=== PATIENT | female | born 1935 | race Caucasian/White ===

== ENCOUNTER 2019-03-07 14:47 | Inpatient (IN) ==
[2019-03-07] MEDS ORDERED: CRESTOR TAB 10 MG PO ONE (18:51)
[2019-03-07] MEDS ORDERED: PROTONIX TAB 40 MG ONE (18:52)
[2019-03-07] MEDS: TENORMIN PO SCH (19:03)
[2019-03-07] MEDS: CRESTOR TAB 10 MG PO SCH ×2 (19:04→21:49)
[2019-03-07] MEDS: PROTONIX TAB 40 MG PO SCH ×2 (19:04→21:50)
[2019-03-07 19:39] LABS: BASOPHILS # (AUTO) 0.1 X10^3/uL (0.0-0.1); BASOPHILS % (AUTO) 0.6 % (0.2-1.0); EOSINOPHILS # (AUTO) 0.1 x10^3/uL (0.0-0.2); EOSINOPHILS % (AUTO) 1.2 % (0.9-2.9); HEMATOCRIT 29.6 % (36.0-47.0); HEMOGLOBIN 9.9 g/dL (12.0-16.0); LYMPHOCYTES # (AUTO) 1.3 X10^3/uL (1.3-2.9); MEAN CORPUSCULAR HEMOGLOBIN 30.1 pg (27.0-34.0); MEAN CORPUSCULAR HGB CONC 33.4 g/dL (33.0-35.0); MEAN CORPUSCULAR VOLUME 90.2 fL (80.0-100.0); MEAN PLATELET VOLUME 9.2 fL (7.4-11.0); MONOCYTES # (AUTO) 1.1 x10^3/uL (0.3-0.8); MONOCYTES % (AUTO) 10.8 % (0.0-13.0); NEUTROPHILS # (AUTO) 7.4 x10^3/uL (2.2-4.8); NEUTROPHILS % (AUTO) 74.4 % (42.0-75.0); PLATELET COUNT 254 X10^3/uL (150.0-450.0); RED BLOOD COUNT 3.29 X10^6/uL (3.5-5.4); RED CELL DISTRIBUTION WIDTH 14.3 % (11.6-16.5); WHITE BLOOD COUNT 9.9 X10^3/uL (3.6-10.0)
[2019-03-07 19:56] LABS: ALANINE AMINOTRANSFERASE 18 Units/L (12-78); ALBUMIN 2.7 g/dL (3.4-5.0); ALKALINE PHOSPHATASE 63 Units/L (46-116); ASPARTATE AMINO TRANSFERASE 25 Units/L (15-37); BLOOD UREA NITROGEN 11 mg/dL (7-18); CALCIUM 8.3 mg/dL (8.5-10.1); CARBON DIOXIDE 27.6 mmol/L (21-32); CHLORIDE 105 mmol/L (98-107); COR CA(FOR HYPOALB) 9.3 mg/dL (8.5-10.1); COR NA(FOR HYPERGLY) 140 mmol/L (136-145); CREATININE 0.65 mg/dL (0.55-1.02); SODIUM 140 mmol/L (136-145); TOTAL PROTEIN 6.1 g/dL (6.4-8.2); eGFR NON BLACK RACES > 60 (>60)
[2019-03-07] MEDS ORDERED: POTASSIUM CHL 40 MEQ/NS 0.45% 500 ML IV PRN (22:37)
[2019-03-07] MEDS ORDERED: POTASSIUM CHLORIDE LIQ 20 MEQ UDC PO PRN (22:37)
[2019-03-07] MEDS ORDERED: MICRO K EXTEN CAP 10 MEQ PO PRN (22:37)
[2019-03-07] MEDS ORDERED: POTASSIUM CHL 60 MEQ/NS 0.45% 500 ML IV PRN (22:37)
[2019-03-07] MEDS ORDERED: MAGNESIUM SULFATE 1 GRAM/100 mL PREMIX 1 GM/100 ML BAG IV PRN (22:37)
[2019-03-07] MEDS ORDERED: K-RIDER 10 MEQ/NS 100 ML 10 MEQ/100 ML BAG IV PRN (22:37)
[2019-03-07] MEDS ORDERED: KLOR-CON PO PRN (22:37)
[2019-03-07] MEDS: K-DUR TAB 20 MEQ PO PRN (23:26)
[2019-03-08] MEDS: TYLENOL 325 MG TAB PO PRN (01:57)
[2019-03-08] MEDS: PROTONIX TAB 40 MG PO SCH ×2 (09:17→20:18)
[2019-03-08] MEDS: HYZAAR 50/12.5 MG PO SCH (09:18)
[2019-03-08] MEDS: TENORMIN PO SCH (09:18)
--- NOTE | 2019-03-08 17:52 | DR.H&P ---
H&P - History & Physical for Day of: H&P Date: 03/07/19 - Chief Complaint Chief Complaint: GENERALIZED WEAKNESS, RECENT GI BLEED - History of Present Illness History of Present Illness: IS A 84 YEAR OLD PATIENT OF OURS WHO WAS TRANSFERRED FROM [facility] IN [place], [place] FOR SWINGBED THERAPY. SHE WAS SENT TO [facility] ON 02/25/2019 DUE TO A GI BLEED. SHE HAS A HISTORY OF ATRIAL FIBRILLATION FOR WHICH SHE WAS TAKING XARELTO. SHE RECEIVED TWO UNITS OF PACKED RED BLOOD CELLS WHILE SHE WAS THERE. SHE WAS SEEN BY GASTROENTEROLOGY WHILE SHE WAS THERE AND HAD A CT SCAN WHICH REVEALED A SPLENIC BLEED WITH INTRA- ABDOMINAL HEMORRHAGE. SHE UNDERWENT IR EMBOLIZATION OF THE MAIN SPLENIC ARTERY. A PICC LINE WAS PLACED AND SHE WAS GIVEN SPLENECTOMY VACCINATIONS. HE HEMOGLOBIN REMAINED STABLE AT 8.5-9.5. SHE UNDERWENT PHYSICAL AND OCCUPATION THERAPY DURING HER STAY DUE TO CHRONIC WEAKNESS AND A DECLINE IN ADLs. SHE WAS DISCHARGED FROM [facility] AND TRANSFERRED TO US FOR REHAB. ON ARRIVAL, VITALS WERE 98.3-82-20-96%-193/77. LABS WERE OBTAINED. ABNORMAL LAB VALUES INCLUDE THE FOLLOWING: RBC 3.29, HGB 9.9, HCT 29.6, POTASSIUM 3.4, GLUCOSE 114, CALCIUM 8.3, TOTAL BILI 1.20, TOTAL PROTEIN 6.1, ALBUMIN 2.7. HER HOME MEDICATIONS WERE RESUMED. SHE WILL RECEIVE PHYSICAL THERAPY AND OCCUPATIONAL THERAPY. OTHERWISE, WE WILL CONTINUE TO MONITOR. - Past Medical History Past Medical History: Dyslipidemia, Hypertension Additional Medical History: ATRIAL FIBRILLATION - Past Surgical History Surgical History: Appendectomy, Hysterectomy Additional Surgical History: AFIB ABLATION - Family History Family Medical History: Cancer - Medications Home Medications: codeine Allergy (Verified 03/07/19 18:43) iodine Allergy (Verified 03/07/19 18:43) meperidine Allergy (Verified 03/07/19 18:43) morphine Allergy (Verified 03/07/19 18:43) NSAIDS (Non-Steroidal Anti-Inflamma Allergy (Verified 03/07/19 18:43) shrimp Allergy (Verified 03/07/19 18:43) CONTINUE taking the following medications atenolol [Tenormin] 12.5 mg PO DAILY 03/07/19 [History] cyanocobalamin (vitamin B-12) 1 ml IM QMONTH 03/07/19 [History] losartan-hydrochlorothiazide 1 tab PO DAILY 03/07/19 [History] pantoprazole [Protonix] 40 mg PO BID 03/07/19 [History] rosuvastatin [Crestor] 10 mg PO DAILY 03/07/19 [History] - Review of Systems Constitutional: See HPI, Weakness Eyes: No Symptoms Reported ENT: No Symptoms Reported Respiratory: No Symptoms Reported Cardiovascular: No Symptoms Reported Gastrointestinal: Abdominal Pain Genitourinary: No Symptoms Reported Musculoskeletal: No Symptoms Reported Skin: No Symptoms Reported Neurological: Weakness - Physical Exam Vital Signs: Temperature 98.1 F Pulse Rate [Left Brachial] 58 Pulse Rate [Left Radial] 79 Respiratory Rate 18 Blood Pressure [Left Arm] 149/69 O2 Sat by Pulse Oximetry 97 Oriented: Normal Eyes: Normal Ear: Normal Nose: Normal Throat: Normal Respiratory: Diminished Throughout Cardiovascular: Normal : Normal Auscultation: Bowel Sounds: Normal Palpation: Normal Tenderness: Normal Skin: Normal Musculoskeletal: Normal Mood Description: Calm Affect: Normal Speech Pattern: Clear - Assessment/Plan (1) Generalized weakness Status: Acute Plan: PHYSICAL/OCCUPATIONAL THERAPY, CONTINUE TO MONITOR (2) GI bleed Qualifiers: GI bleed type/associated pathology: unspecified gastrointestinal hemorrhage type Qualified Code(s): K92.2 - Gastrointestinal hemorrhage, unspecified Status: Acute Plan: CONTINUE TO MONITOR - Allergies Allergies/Adverse Reactions: Allergies Allergy/AdvReac Type Severity Reaction Status Date / Time codeine Allergy Verified 03/07/19 18:43 iodine Allergy Verified 03/07/19 18:43 meperidine Allergy Verified 03/07/19 18:43 morphine Allergy Verified 03/07/19 18:43 NSAIDS (Non-Steroidal Allergy Verified 03/07/19 18:43 Anti-Inflamma shrimp Allergy Verified 03/07/19 18:43
--- NOTE | 2019-03-08 18:41 | PT/OTEVAL ---
PT/OT OBJECTIVES - HISTORY Prescription: OT consult Diagnosis: s/p GI bleed, R upper arm DVT Precautions: DVT on R arm, SOB, risk of falls Prior Level of Function: Independent Other, comment: Pt lives alone and is independent in all areas of self care/transfers. - COGNITION Mental Status: Alert, Oriented, Name, Place, Purpose Communication Status: Verbal Ability to Follow Directions: 2 Step - ADL'S Feeding: Setup Grooming: Minimum Upper Body ADL: Minimum Lower Body ADL: Maximum Toileting: Minimum Toileting Comment: Min to touch A with transfers for safety; hygiene supv. - BALANCE Dynamic Sitting: Good Standing: Fair Balance Comment: F/F- S/D standing balance Static Sitting: Good Standing: Fair Balance Comment: F/F- S/D standing balance - NEUROMOTOR/SENSATION Antonio. Upper Ext Sensation: WFL Coordination: WFL - HAND DOMINANCE Extremity Function: Hand Dominance: Right - ROM Right UE ROM: Impaired Muscle Tone: WFL Left UE ROM: WFL Muscle Tone: WFL - STRENGTH Right UE Strength Number: 3 Other comment: 01/24 Left UE Strength Number: 3 Other comment: 01/24 PT/OT ASSESSMENT - OT Problem List: Decreased Mobility ADL's, Decreased Safety Aware, Decreased Dressing, Decreased Bathing, Decreased Grooming, Decreased UE Strength, Other Other, comment: decreased toileting, decreased FAT - OT GOALS Shopping Investigator Goals Days: 20 days Mobility for ADL's: Pt will demo toilet t'frs/hygiene I using ADs without SOB. Safety Awareness: Pt will demo knowledge of ECTs, WSTs, PBMs, JPTs during ADLs. Dressing: Pt will demo UB/LB dressing independently using AEs PRN and no SOB. Bathing: Pt will demo bathing with setup. Grooming: Pt will demo grooming/oral hygiene at sink level independently. Upper Ext. Strength/Use: Pt will demo in BUE strength to 1/2 to 1 mm grade increment. Other: Pt will demo G FAT during exercises/actvities/ADLs. Short Term Goals Days: 10 days Mobility for ADL's: Pt will demo toilet t'frs/hygiene setup using ADs min SOB. Safety Awareness: Pt will be educated with of ECTs, WSTs, PBMs, JPTs during ADLs. Dressing: Pt will demo UB/LB dressing with setup using AEs PRN and min SOB. Bathing: Pt will demo bathing with supv. Grooming: Pt will demo grooming/oral hygiene at sink level with supv. Other: Pt will demo F FAT during exercises/actvities/ADLs. - PATIENT GOALS Patient/Family Goals: To increase strength necessary for safe ADL participation. Goals Discussed with Patient/Family: Yes Rehabilitation Potential: Good Justification for Potential: High PLOF, able to participate. - PLAN Suggested Treatment Plan: Therapeutic Activity, Self Care Training, Neuro Re- education, Therapeutic Ex with HEP, Patient Education - FREQUENCY AND DURATION OT: 5x/wk for 20 days Expected Continuation of Care at Discharge: Determined on Progress
[2019-03-08] MEDS: CRESTOR TAB 10 MG PO SCH (20:18)
[2019-03-09 05:31] LABS: BASOPHILS # (AUTO) 0.1 X10^3/uL (0.0-0.1); EOSINOPHILS # (AUTO) 0.1 x10^3/uL (0.0-0.2); EOSINOPHILS % (AUTO) 1.5 % (0.9-2.9); HEMATOCRIT 28.1 % (36.0-47.0); HEMOGLOBIN 9.3 g/dL (12.0-16.0); LYMPHOCYTES # (AUTO) 1.5 X10^3/uL (1.3-2.9); LYMPHOCYTES % (AUTO) 19.2 % (21.0-51.0); MEAN CORPUSCULAR HEMOGLOBIN 29.6 pg (27.0-34.0); MEAN CORPUSCULAR HGB CONC 33.3 g/dL (33.0-35.0); MEAN PLATELET VOLUME 9.4 fL (7.4-11.0); MONOCYTES # (AUTO) 0.9 x10^3/uL (0.3-0.8); NEUTROPHILS # (AUTO) 5.2 x10^3/uL (2.2-4.8); NEUTROPHILS % (AUTO) 67.3 % (42.0-75.0); PLATELET COUNT 228 X10^3/uL (150.0-450.0); RED BLOOD COUNT 3.16 X10^6/uL (3.5-5.4); RED CELL DISTRIBUTION WIDTH 14.7 % (11.6-16.5); WHITE BLOOD COUNT 7.8 X10^3/uL (3.6-10.0)
[2019-03-09 05:32] LABS: SODIUM 140 mmol/L (136-145); TOTAL PROTEIN 5.8 g/dL (6.4-8.2)
[2019-03-09 05:49] LABS: PLATELET MORPHOLOGY COMMENT NORMAL (NORMAL)
[2019-03-09 06:00] LABS: ALANINE AMINOTRANSFERASE 18 Units/L (12-78); ALBUMIN 2.4 g/dL (3.4-5.0); ALKALINE PHOSPHATASE 67 Units/L (46-116); ASPARTATE AMINO TRANSFERASE 28 Units/L (15-37); BLOOD UREA NITROGEN 9 mg/dL (7-18); CALCIUM 8.1 mg/dL (8.5-10.1); CHLORIDE 105 mmol/L (98-107); COR CA(FOR HYPOALB) 9.4 mg/dL (8.5-10.1); COR NA(FOR HYPERGLY) 141 mmol/L (136-145); eGFR NON BLACK RACES > 60 (>60)
[2019-03-09] MEDS: TENORMIN PO SCH (09:14)
[2019-03-09] MEDS: HYZAAR 50/12.5 MG PO SCH ×2 (09:14→09:16)
[2019-03-09] MEDS: PROTONIX TAB 40 MG PO SCH ×2 (09:14→20:47)
[2019-03-09] MEDS: K-DUR TAB 20 MEQ PO PRN (09:16)
[2019-03-09] MEDS ORDERED: VITAMIN B-12 INJ IM ONE (10:17)
--- NOTE | 2019-03-09 15:32 | PT/OTEVAL ---
PT/OT OBJECTIVES - HISTORY Prescription: PT Evaluation Diagnosis: GI bleed and generalized weakness Precautions: fall risk Prior Level of Function: Independent - COGNITION Mental Status: Alert, Oriented, Lethargic, Decreased Safety Awarenes Communication Status: Verbal Ability to Follow Directions: 2 Step, 3 Step - BED MOBILITY Rolling: Supervision Scooting: Supervision Bridging: Supervision - TRANSFERS Supine to Sit: Minimal Sit to Stand: Minimal Sit or Stand Pivot: Minimal - BALANCE Dynamic Sitting: Good Standing: Fair Balance Comment: F/F- S/D standing balance Static Sitting: Good Standing: Fair Balance Comment: F/F- S/D standing balance - NEUROMOTOR/SENSATION Antonio. Upper Ext Sensation: WFL Coordination: WFL - ROM Bilateral LE ROM: WFL Muscle Tone: WFL - STRENGTH Right UE Strength Number: 3 Other comment: 01/24 Left UE Strength Number: 3 Other comment: 01/24 Bilateral LE Strength Number: 3 - GAIT Pt. ambulates how many feet?: 8 Amount of assistance required: Minimal Amount of Assistance Required: Minimal Type of Assistive Device: None PT/OT ASSESSMENT - PT Problem List: Decreased Bed Mobility, Decreased Transfers, Decreased Gait, Decreased Balance, Decreased Safety, Decreased LE Strength - PT GOALS Intermediate Goals Days: 20 days Mobility: pt. will be Independent in rolling and supine <-> sit @ EOB Transfers: pt. will be Independent in transfers from bed <-> W/C Gait: pt. will be Independent & increase gait to ~ 100 ft. with/without use of AD Balance: pt. will increase standing balance to G+/G ROM/Strength: pt. will increase BLE muscle strength to 4/5 -> 4+/5 Short Term Goals Days: 10 Mobility: pt. will achieve Set/Clean-up A in rolling and supine <-> sit @ EOB Transfers: pt. will achieve Set/Clean-up A in transfers from bed <-> W/C Gait: pt. will be Set/Clean-up & increase gait to ~ 50 ft. with/without use of AD Balance: pt. will increase standing balance to G/G- ROM/Strength: pt. will increase BLE muscle strength to 3+/5 -> 4-/5 - OT GOALS Intermediate Goals Days: 20 days Mobility for ADL's: Pt will demo toilet t'frs/hygiene I using ADs without SOB. Safety Awareness: Pt will demo knowledge of ECTs, WSTs, PBMs, JPTs during ADLs. Dressing: Pt will demo UB/LB dressing independently using AEs PRN and no SOB. Bathing: Pt will demo bathing with setup. Grooming: Pt will demo grooming/oral hygiene at sink level independently. Upper Ext. Strength/Use: Pt will demo in BUE strength to 1/2 to 1 mm grade increment. Other: Pt will demo G FAT during exercises/actvities/ADLs. Short Term Goals Days: 10 days Mobility for ADL's: Pt will demo toilet t'frs/hygiene setup using ADs min SOB. Safety Awareness: Pt will be educated with of ECTs, WSTs, PBMs, JPTs during ADLs. Dressing: Pt will demo UB/LB dressing with setup using AEs PRN and min SOB. Bathing: Pt will demo bathing with supv. Grooming: Pt will demo grooming/oral hygiene at sink level with supv. Other: Pt will demo F FAT during exercises/actvities/ADLs. - PATIENT GOALS Patient/Family Goals: to get stronger and return to PLOF in home and community settings Goals Discussed with Patient/Family: Yes Rehabilitation Potential: good Justification for Potential: pt. motivated to return home Weakness and Barriers: None - PLAN Suggested Treatment Plan: Bed Mobility Training, Therapeutic Activity, Gait Training, Neuro Re-education, Therapeutic Ex with HEP - FREQUENCY AND DURATION PT: 5x/wk x hospital stay Expected Continuation of Care at Discharge: Determined on Progress
[2019-03-09] MEDS: CRESTOR TAB 10 MG PO SCH (20:47)
[2019-03-10] MEDS: TENORMIN PO SCH (08:25)
[2019-03-10] MEDS: PROTONIX TAB 40 MG PO SCH ×2 (08:25→21:04)
[2019-03-10] MEDS: CRESTOR TAB 10 MG PO SCH (21:04)
[2019-03-11] MEDS: K-DUR TAB 20 MEQ PO PRN (06:28)
[2019-03-11] MEDS: PROTONIX TAB 40 MG PO SCH ×2 (08:49→20:18)
[2019-03-11] MEDS: TENORMIN PO SCH (08:49)
--- NOTE | 2019-03-11 17:25 | PCM.PROG ---
Progress Note - Progress Note for Day of Date of Exam: 03/10/19 - Subjective Subjective: IS SWINGBED STATUS FOR PHYSICAL AND OCCUPATIONAL THERAPY DUE TO A DECLINE IN AMBULATION AND ADLs FOLLOWING A GI BLEED. SHE RECENTLY UNDERWENT AN IR EMBOLIZATION DUE TO A SPLENIC BLEED WITH INTRA-ABDOMINAL HEMORRHAGE. TODAY, SHE IS ALERT AND ORIENTED, SITTING UP IN CHAIR ON MORNING RO UNDS. SHE CONTINUES WITH GENERALIZED WEAKNESS. ON EXAMINATION, HEART IS REGULAR IN RATE AND RHYTHM. BILATERAL LUNGS ARE NOTED WITH DIMINISHED LUNG SOUNDS THROUGHOUT. ABDOMEN IS ROUND, SOFT, AND NON-TENDER. HER VITALS THIS MORNING ARE 98.1-66-20-95%-141/64. LABS WERE OBTAINED YESTERDAY AND REVEALED: RBC 3.16, HGB 9.3, HCT 28.1, GLUCOSE 121, CALCIUM 8.1, TOTAL PROTEIN 5.8, ALBUMIN 2.4. PHYSICAL THERAPY REPORTS THAT PATIENT IS COOPERATING AND MAKING IMPROVEMENTS. WE WILL CONTINUE WITH THERAPY AND CONTINUE TO MONITOR PATIENT. - Past Medical Family Social History Past Med/Fam/Surg Hx: No changes since H&P Allergies: Allergies codeine Allergy (Verified 03/07/19 18:43) iodine Allergy (Verified 03/07/19 18:43) meperidine Allergy (Verified 03/07/19 18:43) morphine Allergy (Verified 03/07/19 18:43) NSAIDS (Non-Steroidal Anti-Inflamma Allergy (Verified 03/07/19 18:43) shrimp Allergy (Verified 03/07/19 18:43) - Review of Systems ROS: No change since H&P - Vital Signs and I&O's Vital Signs: Temperature 98.2 F Pulse Rate [Left Brachial] 59 Pulse Rate [Left Radial] 79 Respiratory Rate 18 Blood Pressure [Left Arm] 140/64 O2 Sat by Pulse Oximetry 96 Intake and Output: Intake & Output 03/09/19 03/10/19 03/11/19 03/12/19 11:59 11:59 11:59 11:59 Intake Total 660 / 660 1080 / 1080 1660 / 1660 440 / 440 Balance 660 / 660 1080 / 1080 1660 / 1660 440 / 440 - Physical Exam Oriented: Normal Eyes: Normal Ear: Normal Nose: Normal Throat: Normal Respiratory: Generalized, Diminished Cardiovascular: Normal : Normal Auscultation: Bowel Sounds: Normal Palpation: Normal Tenderness: Normal Skin: Normal Musculoskeletal: Normal Mood Description: Calm Affect: Normal Speech Pattern: Clear, Appropriate - Laboratory and Diagnostics Result Diagrams: 03/09/19 04:40 03/09/19 05:40 Labs: Laboratory WBC 7.8 X10^3/uL (3.6-10.0) 03/09/19 04:40 RBC 3.16 X10^6/uL (3.5-5.4) L 03/09/19 04:40 Hgb 9.3 g/dL (12.0-16.0) L 03/09/19 04:40 Hct 28.1 % (36.0-47.0) L 03/09/19 04:40 MCV 89.0 fL (80.0-100.0) 03/09/19 04:40 MCH 29.6 pg (27.0-34.0) 03/09/19 04:40 MCHC 33.3 g/dL (33.0-35.0) 03/09/19 04:40 RDW 14.7 % (11.6-16.5) 03/09/19 04:40 Plt Count 228 X10^3/uL (150.0-450.0) 03/09/19 04:40 Plt Count Comment Adequate (ADEQUATE) 03/09/19 04:40 MPV 9.4 fL (7.4-11.0) 03/09/19 04:40 Neut % (Auto) 67.3 % (42.0-75.0) 03/09/19 04:40 Lymph % (Auto) 19.2 % (21.0-51.0) L 03/09/19 04:40 Jewell % (Auto) 11.0 % (0.0-13.0) 03/09/19 04:40 Eos % (Auto) 1.5 % (0.9-2.9) 03/09/19 04:40 Baso % (Auto) 1.0 % (0.2-1.0) 03/09/19 04:40 Neut # (Auto) 5.2 x10^3/uL (2.2-4.8) H 03/09/19 04:40 Lymph # (Auto) 1.5 X10^3/uL (1.3-2.9) 03/09/19 04:40 Jewell # (Auto) 0.9 x10^3/uL (0.3-0.8) H 03/09/19 04:40 Eos # (Auto) 0.1 x10^3/uL (0.0-0.2) 03/09/19 04:40 Baso # (Auto) 0.1 X10^3/uL (0.0-0.1) 03/09/19 04:40 Absolute Nucleated RBC 0.1 /100WBC 03/09/19 04:40 Total Counted 100 03/09/19 04:40 Neutrophils % (Manual) 63 % (39-76) 03/09/19 04:40 Lymphocytes % (Manual) 25 % (13-43) 03/09/19 04:40 Monocytes % (Manual) 11 % (4-9) H 03/09/19 04:40 Eosinophils % (Manual) 1 % (0-6) 03/09/19 04:40 Plt Morphology Comment Normal (NORMAL) 03/09/19 04:40 RBC Morphology Normal (NORMAL) 03/09/19 04:40 Sodium 140 mmol/L (136-145) 03/09/19 05:40 Corrected Sodium 141 mmol/L (136-145) 03/09/19 05:40 Potassium 3.5 mmol/L (3.5-5.1) 03/09/19 05:40 Chloride 105 mmol/L (98-107) 03/09/19 05:40 Carbon Dioxide 29.0 mmol/L (21-32) 03/09/19 05:40 BUN 9 mg/dL (7-18) 03/09/19 05:40 Creatinine 0.60 mg/dL (0.55-1.02) 03/09/19 05:40 Est GFR (MDRD) Af Amer > 60 (>60) 03/09/19 05:40 Est GFR (MDRD) Non-Af > 60 (>60) 03/09/19 05:40 Glucose 121 mg/dL (65-99) H 03/09/19 05:40 Calcium 8.1 mg/dL (8.5-10.1) L 03/09/19 05:40 Corrected Calcium 9.4 mg/dL (8.5-10.1) 03/09/19 05:40 Magnesium 1.8 mg/dL (1.7-2.9) 03/07/19 19:30 Total Bilirubin 1.00 mg/dL (0.2-1.0) 03/09/19 05:40 AST 28 Units/L (15-37) 03/09/19 05:40 ALT 18 Units/L (12-78) 03/09/19 05:40 Alkaline Phosphatase 67 Units/L (46-116) 03/09/19 05:40 Total Protein 5.8 g/dL (6.4-8.2) L 03/09/19 05:40 Albumin 2.4 g/dL (3.4-5.0) L 03/09/19 05:40 Globulin 3.4 g/dL (2.5-4.5) 03/09/19 05:40 Albumin/Globulin Ratio 0.7 Ratio (1.1-2.1) L 03/09/19 05:40 - Plan (1) Generalized weakness Status: Acute Plan: PHYSICAL/OCCUPATIONAL THERAPY, CONTINUE TO MONITOR (2) GI bleed Status: Acute Qualifiers: GI bleed type/associated pathology: unspecified gastrointestinal hemorrhage type Qualified Code(s): K92.2 - Gastrointestinal hemorrhage, unspecified Plan: CONTINUE TO MONITOR
[2019-03-11] MEDS: CRESTOR TAB 10 MG PO SCH (20:18)
[2019-03-12] MEDS: PROTONIX TAB 40 MG PO SCH ×2 (08:48→20:32)
[2019-03-12] MEDS: K-DUR TAB 20 MEQ PO SCH ×2 (08:48→20:31)
[2019-03-12] MEDS: TENORMIN PO SCH (08:49)
[2019-03-12] MEDS: MAG-OX TAB PO SCH ×3 (08:49→17:38)
[2019-03-12] MEDS: CRESTOR TAB 10 MG PO SCH (20:31)
[2019-03-13 05:26] LABS: BASOPHILS # (AUTO) 0.1 X10^3/uL (0.0-0.1); BASOPHILS % (AUTO) 1.2 % (0.2-1.0); EOSINOPHILS # (AUTO) 0.2 x10^3/uL (0.0-0.2); EOSINOPHILS % (AUTO) 2.5 % (0.9-2.9); HEMATOCRIT 30.7 % (36.0-47.0); HEMOGLOBIN 10.2 g/dL (12.0-16.0); LYMPHOCYTES # (AUTO) 1.6 X10^3/uL (1.3-2.9); LYMPHOCYTES % (AUTO) 23.9 % (21.0-51.0); MEAN CORPUSCULAR HEMOGLOBIN 29.8 pg (27.0-34.0); MEAN CORPUSCULAR HGB CONC 33.1 g/dL (33.0-35.0); MEAN CORPUSCULAR VOLUME 90.2 fL (80.0-100.0); MEAN PLATELET VOLUME 9.5 fL (7.4-11.0); MONOCYTES # (AUTO) 0.9 x10^3/uL (0.3-0.8); MONOCYTES % (AUTO) 13.9 % (0.0-13.0); NEUTROPHILS # (AUTO) 3.8 x10^3/uL (2.2-4.8); NEUTROPHILS % (AUTO) 58.5 % (42.0-75.0); PLATELET COUNT 274 X10^3/uL (150.0-450.0); RED CELL DISTRIBUTION WIDTH 14.4 % (11.6-16.5); WHITE BLOOD COUNT 6.5 X10^3/uL (3.6-10.0)
[2019-03-13 05:34] LABS: ALANINE AMINOTRANSFERASE 17 Units/L (12-78); ALBUMIN 2.5 g/dL (3.4-5.0); ALKALINE PHOSPHATASE 80 Units/L (46-116); ASPARTATE AMINO TRANSFERASE 26 Units/L (15-37); BLOOD UREA NITROGEN 9 mg/dL (7-18); CALCIUM 8.3 mg/dL (8.5-10.1); CARBON DIOXIDE 28.6 mmol/L (21-32); CHLORIDE 107 mmol/L (98-107); COR CA(FOR HYPOALB) 9.5 mg/dL (8.5-10.1); COR NA(FOR HYPERGLY) 142 mmol/L (136-145); CREATININE 0.73 mg/dL (0.55-1.02); MAGNESIUM 1.7 mg/dL (1.7-2.9); SODIUM 142 mmol/L (136-145); TOTAL PROTEIN 5.9 g/dL (6.4-8.2); eGFR NON BLACK RACES > 60 (>60)
[2019-03-13] MEDS: MAG-OX TAB PO SCH ×3 (06:07→17:26)
[2019-03-13] MEDS: PROTONIX TAB 40 MG PO SCH ×2 (09:22→20:41)
[2019-03-13] MEDS: K-DUR TAB 20 MEQ PO SCH ×2 (09:22→20:39)
[2019-03-13] MEDS: TENORMIN PO SCH (09:23)
[2019-03-13] MEDS: MEGACE PO SCH ×2 (11:40→20:41)
--- NOTE | 2019-03-13 19:23 | PCM.PROG ---
Progress Note - Progress Note for Day of Date of Exam: 03/13/19 - Subjective Subjective: IS SWINGBED STATUS FOR PHYSICAL AND OCCUPATIONAL THERAPY DUE TO A DECLINE IN AMBULATION AND ADLs FOLLOWING A GI BLEED. SHE RECENTLY UNDERWENT AN IR EMBOLIZATION DUE TO A SPLENIC BLEED WITH INTRA-ABDOMINAL HEMORRHAGE. TODAY, SHE IS ALERT AND ORIENTED, SITTING UP IN CHAIR ON MORNING RO UNDS. SHE CONTINUES WITH GENERALIZED WEAKNESS. SHE ALSO REPORTS A DECREASED APPETITE TODAY. ON EXAMINATION, HEART IS REGULAR IN RATE AND RHYTHM. BILATERAL LUNGS ARE NOTED WITH DIMINISHED LUNG SOUNDS THROUGHOUT. ABDOMEN IS ROUND, SOFT, AND NON-TENDER. HER VITALS THIS MORNING ARE 98.8-69-18-96%-139/65. LABS WERE OBTAINED YESTERDAY AND REVEALED: RBC 3.40, HGB 10.2, HCT 30.7, GLUCOSE 119, CALCIUM 8.3, TOTAL PROTEIN 5.9, ALBUMIN 2.5. PHYSICAL THERAPY REPORTS THAT PATIENT IS COOPERATING AND MAKING IMPROVEMENTS. TODAY, WE WILL START MEGACE 40MG PO BID. OTHERWISE, WE WILL CONTINUE WITH THERAPY AND CONTINUE TO MONITOR PATIENT. - Past Medical Family Social History Past Med/Fam/Surg Hx: No changes since H&P Allergies: Allergies codeine Allergy (Verified 03/07/19 18:43) iodine Allergy (Verified 03/07/19 18:43) meperidine Allergy (Verified 03/07/19 18:43) morphine Allergy (Verified 03/07/19 18:43) NSAIDS (Non-Steroidal Anti-Inflamma Allergy (Verified 03/07/19 18:43) shrimp Allergy (Verified 03/07/19 18:43) - Review of Systems ROS: No change since H&P - Vital Signs and I&O's Vital Signs: Temperature 98.8 F Pulse Rate [Left Brachial] 69 Pulse Rate [Left Radial] 79 Respiratory Rate 18 Blood Pressure [Left Arm] 139/65 O2 Sat by Pulse Oximetry 96 Intake and Output: Intake & Output 03/11/19 03/12/19 03/13/19 03/14/19 11:59 11:59 11:59 11:59 Intake Total 1660 / 1660 860 / 860 1740 / 1740 480 / 480 Balance 1660 / 1660 860 / 860 1740 / 1740 480 / 480 - Physical Exam Oriented: Normal Eyes: Normal Ear: Normal Nose: Normal Throat: Normal Respiratory: Generalized, Diminished Cardiovascular: Normal : Normal Auscultation: Bowel Sounds: Normal Palpation: Normal Tenderness: Normal Skin: Normal Musculoskeletal: Normal Mood Description: Calm Affect: Normal Speech Pattern: Clear, Appropriate - Laboratory and Diagnostics Result Diagrams: 03/13/19 04:27 03/13/19 04:27 Labs: Laboratory WBC 6.5 X10^3/uL (3.6-10.0) 03/13/19 04:27 RBC 3.40 X10^6/uL (3.5-5.4) L 03/13/19 04:27 Hgb 10.2 g/dL (12.0-16.0) L 03/13/19 04:27 Hct 30.7 % (36.0-47.0) L 03/13/19 04:27 MCV 90.2 fL (80.0-100.0) 03/13/19 04:27 MCH 29.8 pg (27.0-34.0) 03/13/19 04:27 MCHC 33.1 g/dL (33.0-35.0) 03/13/19 04:27 RDW 14.4 % (11.6-16.5) 03/13/19 04:27 Plt Count 274 X10^3/uL (150.0-450.0) 03/13/19 04:27 Plt Count Comment Adequate (ADEQUATE) 03/09/19 04:40 MPV 9.5 fL (7.4-11.0) 03/13/19 04:27 Neut % (Auto) 58.5 % (42.0-75.0) 03/13/19 04:27 Lymph % (Auto) 23.9 % (21.0-51.0) 03/13/19 04:27 Hendry % (Auto) 13.9 % (0.0-13.0) H 03/13/19 04:27 Eos % (Auto) 2.5 % (0.9-2.9) 03/13/19 04:27 Baso % (Auto) 1.2 % (0.2-1.0) H 03/13/19 04:27 Neut # (Auto) 3.8 x10^3/uL (2.2-4.8) 03/13/19 04:27 Lymph # (Auto) 1.6 X10^3/uL (1.3-2.9) 03/13/19 04:27 Hendry # (Auto) 0.9 x10^3/uL (0.3-0.8) H 03/13/19 04:27 Eos # (Auto) 0.2 x10^3/uL (0.0-0.2) 03/13/19 04:27 Baso # (Auto) 0.1 X10^3/uL (0.0-0.1) 03/13/19 04:27 Absolute Nucleated RBC 0.0 /100WBC 03/13/19 04:27 Total Counted 100 03/09/19 04:40 Neutrophils % (Manual) 63 % (39-76) 03/09/19 04:40 Lymphocytes % (Manual) 25 % (13-43) 03/09/19 04:40 Monocytes % (Manual) 11 % (4-9) H 03/09/19 04:40 Eosinophils % (Manual) 1 % (0-6) 03/09/19 04:40 Plt Morphology Comment Normal (NORMAL) 03/09/19 04:40 RBC Morphology Normal (NORMAL) 03/09/19 04:40 Sodium 142 mmol/L (136-145) 03/13/19 04:27 Corrected Sodium 142 mmol/L (136-145) 03/13/19 04:27 Potassium 4.2 mmol/L (3.5-5.1) 03/13/19 04:27 Chloride 107 mmol/L (98-107) 03/13/19 04:27 Carbon Dioxide 28.6 mmol/L (21-32) 03/13/19 04:27 BUN 9 mg/dL (7-18) 03/13/19 04:27 Creatinine 0.73 mg/dL (0.55-1.02) 03/13/19 04:27 Est GFR (MDRD) Af Amer > 60 (>60) 03/13/19 04:27 Est GFR (MDRD) Non-Af > 60 (>60) 03/13/19 04:27 Glucose 119 mg/dL (65-99) H 03/13/19 04:27 Calcium 8.3 mg/dL (8.5-10.1) L 03/13/19 04:27 Corrected Calcium 9.5 mg/dL (8.5-10.1) 03/13/19 04:27 Magnesium 1.7 mg/dL (1.7-2.9) 03/13/19 04:27 Total Bilirubin 0.80 mg/dL (0.2-1.0) 03/13/19 04:27 AST 26 Units/L (15-37) 03/13/19 04:27 ALT 17 Units/L (12-78) 03/13/19 04:27 Alkaline Phosphatase 80 Units/L (46-116) 03/13/19 04:27 Total Protein 5.9 g/dL (6.4-8.2) L 03/13/19 04:27 Albumin 2.5 g/dL (3.4-5.0) L 03/13/19 04:27 Globulin 3.4 g/dL (2.5-4.5) 03/13/19 04:27 Albumin/Globulin Ratio 0.7 Ratio (1.1-2.1) L 03/13/19 04:27 - Plan (1) Generalized weakness Status: Acute Plan: PHYSICAL/OCCUPATIONAL THERAPY, CONTINUE TO MONITOR (2) GI bleed Status: Acute Qualifiers: GI bleed type/associated pathology: unspecified gastrointestinal hemorrhage type Qualified Code(s): K92.2 - Gastrointestinal hemorrhage, unspecified Plan: CONTINUE TO MONITOR (3) Hypertension Status: Acute Qualifiers: Hypertension type: essential hypertension Qualified Code(s): I10 - Essential (primary) hypertension Plan: CONTINUE ATENOLOL, CONTINUE TO MONITOR (4) Hyperlipidemia Status: Acute Qualifiers: Hyperlipidemia type: mixed hyperlipidemia Qualified Code(s): E78.2 - Mixed hyperlipidemia Plan: CONTINUE CRESTOR, CONTINUE TO MONITOR (5) Decreased appetite Status: Acute Plan: MEGACE 40MG PO BID, CONTINUE TO MONITOR
[2019-03-13] MEDS: CRESTOR TAB 10 MG PO SCH (20:41)
[2019-03-14] MEDS: MAG-OX TAB PO SCH ×3 (06:30→17:24)
[2019-03-14] MEDS: K-DUR TAB 20 MEQ PO SCH ×2 (08:14→20:58)
[2019-03-14] MEDS: MEGACE PO SCH ×2 (08:14→20:59)
[2019-03-14] MEDS: PROTONIX TAB 40 MG PO SCH ×2 (08:14→20:59)
[2019-03-14] MEDS: TENORMIN PO SCH (08:15)
[2019-03-14] MEDS: CRESTOR TAB 10 MG PO SCH (20:59)
[2019-03-14] MEDS: CLARITIN PO SCH (20:59)
[2019-03-14] MEDS: RESTORIL CAP 15 MG PO PRN (21:00)
[2019-03-15] MEDS: MAG-OX TAB PO SCH ×3 (06:05→17:43)
[2019-03-15] MEDS: PROTONIX TAB 40 MG PO SCH ×2 (08:42→20:26)
[2019-03-15] MEDS: K-DUR TAB 20 MEQ PO SCH ×2 (08:42→20:26)
[2019-03-15] MEDS: TENORMIN PO SCH (08:43)
[2019-03-15] MEDS: MEGACE PO SCH ×2 (08:43→20:27)
[2019-03-15] MEDS: RESTORIL CAP 15 MG PO PRN (20:26)
[2019-03-15] MEDS: CLARITIN PO SCH (20:27)
[2019-03-15] MEDS: CRESTOR TAB 10 MG PO SCH (20:40)
[2019-03-16 05:20] LABS: BASOPHILS % (AUTO) 0.6 % (0.2-1.0); EOSINOPHILS # (AUTO) 0.2 x10^3/uL (0.0-0.2); EOSINOPHILS % (AUTO) 2.4 % (0.9-2.9); HEMATOCRIT 34.3 % (36.0-47.0); HEMOGLOBIN 11.2 g/dL (12.0-16.0); LYMPHOCYTES % (AUTO) 27.4 % (21.0-51.0); MEAN CORPUSCULAR HEMOGLOBIN 29.3 pg (27.0-34.0); MEAN CORPUSCULAR HGB CONC 32.5 g/dL (33.0-35.0); MEAN PLATELET VOLUME 9.5 fL (7.4-11.0); MONOCYTES % (AUTO) 13.6 % (0.0-13.0); NEUTROPHILS # (AUTO) 4.1 x10^3/uL (2.2-4.8); PLATELET COUNT 290 X10^3/uL (150.0-450.0); RED BLOOD COUNT 3.82 X10^6/uL (3.5-5.4); RED CELL DISTRIBUTION WIDTH 14.5 % (11.6-16.5); WHITE BLOOD COUNT 7.3 X10^3/uL (3.6-10.0)
[2019-03-16 05:34] LABS: ALANINE AMINOTRANSFERASE 15 Units/L (12-78); ALBUMIN 2.8 g/dL (3.4-5.0); ALKALINE PHOSPHATASE 83 Units/L (46-116); ASPARTATE AMINO TRANSFERASE 21 Units/L (15-37); BLOOD UREA NITROGEN 9 mg/dL (7-18); CALCIUM 8.7 mg/dL (8.5-10.1); CARBON DIOXIDE 25.7 mmol/L (21-32); CHLORIDE 106 mmol/L (98-107); COR CA(FOR HYPOALB) 9.7 mg/dL (8.5-10.1); COR NA(FOR HYPERGLY) 140 mmol/L (136-145); CREATININE 0.72 mg/dL (0.55-1.02); SODIUM 140 mmol/L (136-145); TOTAL PROTEIN 6.5 g/dL (6.4-8.2); eGFR NON BLACK RACES > 60 (>60)
[2019-03-16] MEDS: MAG-OX TAB PO SCH ×3 (06:16→17:07)
[2019-03-16] MEDS: PROTONIX TAB 40 MG PO SCH ×2 (09:46→20:59)
[2019-03-16] MEDS: TENORMIN PO SCH (09:46)
[2019-03-16] MEDS: K-DUR TAB 20 MEQ PO SCH ×2 (09:49→20:59)
[2019-03-16] MEDS: MEGACE PO SCH ×2 (09:51→20:59)
[2019-03-16] MEDS: TYLENOL 325 MG TAB PO PRN ×2 (10:45→17:07)
--- NOTE | 2019-03-16 10:50 | VAS ---
HISTORY: Left lower extremity pain Study: Left lower extremity venous Doppler Comparison: None Technique: Multiple grayscale sonographic images were obtained. Color duplex Doppler evaluation was performed. Findings: The common femoral vein, superficial femoral vein, and popliteal veins and tibial veins appear patent demonstrating normal flow. The exam is negative for deep venous thrombosis in the left lower extremity. IMPRESSION: Exam negative for deep venous thrombosis in the left lower extremity Reported By:
[2019-03-16] MEDS: VOLTAREN 1 % GEL MULTI DOSE TUBE TOP SCH ×2 (14:20→21:01)
[2019-03-16] MEDS: CRESTOR TAB 10 MG PO SCH (20:59)
[2019-03-16] MEDS: CLARITIN PO SCH (20:59)
[2019-03-16] MEDS: RESTORIL CAP 15 MG PO PRN (21:15)
[2019-03-17] MEDS: TYLENOL 325 MG TAB PO PRN (05:54)
[2019-03-17] MEDS: VOLTAREN 1 % GEL MULTI DOSE TUBE TOP SCH (05:55)
[2019-03-17] MEDS: MAG-OX TAB PO SCH ×2 (06:05→11:50)
[2019-03-17 07:46] VITALS: BP 128/59
[2019-03-17] MEDS: K-DUR TAB 20 MEQ PO SCH (08:41)
[2019-03-17] MEDS: PROTONIX TAB 40 MG PO SCH (08:42)
[2019-03-17] MEDS: MEGACE PO SCH (08:42)
[2019-03-17] MEDS: TENORMIN PO SCH (08:42)
== END 2019-03-17 12:50 | disposition home health service (06) | DRG 949 ==
LOC: MED/SURG 18:16
PROVIDERS: ADMIT Internal Medicine; ATTEND Internal Medicine
DX: Z51.89 Encounter for other specified aftercare; R63.0 Anorexia; Z98.890 Other specified postprocedural states; K92.2 Gastrointestinal hemorrhage, unspecified; E78.2 Mixed hyperlipidemia; I10 Essential (primary) hypertension; R53.1 Weakness
CPT/HCPCS: 36415; 80053; 83735; 84132; 85025; 93005; 93971; 94760; 97110; 97116; 97162; 97166; 97530; 97535; S0179; J3420; J3475; J3490

== ENCOUNTER 2023-08-09 13:11 | Observation (INO) ==
[2023-08-09 13:22] VITALS: BMI 23.3
--- NOTE | 2023-08-09 13:41 | DR.GENAD ---
HPI Time Seen Time Seen by Provider: 08/09/23 13:41 PCP Primary Care Physician: Ramakrishna Complaint/Symptoms Chief Complaint:: Pt c/o diarrhea all last night, called PCP ofc and made appt today, EKG done in office and showed Darlene, sent to ER from MD office. 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 [place] Past Surgical History: Yes Surgical History: Hysterectomy, Ortho Surgery, Tonsillectomy and Other Family History History of Family Medical Conditions: Yes Family Medical History: Cancer and Hypertension Social History Does patient currently use any type of tobacco product: No Have you used tobacco products in the last 12 months: No Type of Tobacco Use: None Does any household member use tobacco: No Alcohol Use: None Do you use any recreational Drugs:: No Lives With: Alone Lives Where: Home Travel Risk Coronavirus risk:travel/contact w/high risk person: No Has patient experienced Coronavirus symptoms: No Infectious screening In the last 2 months have you had wt loss of >10#?: NO Have you had fever, night sweats or hemotysis?: No Have you traveled outside the country in the last 6 months?: No Isolation: Standard PE Vital Signs Vitals: Vital Signs Temperature 98.2 F Pulse Rate 81 Pulse Rate 111 Pulse Rate 92 Pulse Rate 125 Pulse Rate 122 Pulse Rate 125 Pulse Rate 118 Pulse Rate 106 Pulse Rate 132 Pulse Rate 109 Pulse Rate 144 Pulse Rate 121 Pulse Rate 111 Pulse Rate 122 Pulse Rate 95 Respiratory Rate 18 Respiratory Rate 20 Respiratory Rate 15 Respiratory Rate 23 Respiratory Rate 15 Respiratory Rate 10 Respiratory Rate 16 Respiratory Rate 16 Respiratory Rate 15 Respiratory Rate 19 Respiratory Rate 18 Respiratory Rate 31 Respiratory Rate 18 Respiratory Rate 19 Respiratory Rate 16 Blood Pressure 164/72 Blood Pressure 159/81 Blood Pressure 142/93 Blood Pressure 141/74 Blood Pressure 131/98 Blood Pressure 147/92 Blood Pressure 155/67 Blood Pressure 139/83 O2 Sat by Pulse Oximetry 97 O2 Sat by Pulse Oximetry 93 O2 Sat by Pulse Oximetry 98 O2 Sat by Pulse Oximetry 94 O2 Sat by Pulse Oximetry 99 O2 Sat by Pulse Oximetry 96 O2 Sat by Pulse Oximetry 99 O2 Sat by Pulse Oximetry 97 O2 Sat by Pulse Oximetry 96 O2 Sat by Pulse Oximetry 96 O2 Sat by Pulse Oximetry 97 O2 Sat by Pulse Oximetry 98 ROR Labs Reviewed 08/09/23 13:53 08/09/23 13:53 Laboratory: WBC 6.6 X10^3/uL (3.6-10.0) 08/09/23 13:53 RBC 4.13 X10^6/uL (3.5-5.4) 08/09/23 13:53 Hgb 11.8 g/dL (12.0-16.0) L 08/09/23 13:53 Hct 35.9 % (36.0-47.0) L 08/09/23 13:53 MCV 86.9 fL (80.0-100.0) 08/09/23 13:53 MCH 28.5 pg (27.0-34.0) 08/09/23 13:53 MCHC 32.8 g/dL (33.0-35.0) L 08/09/23 13:53 RDW 13.6 % (11.6-16.5) 08/09/23 13:53 Plt Count 136 X10^3/uL (150.0-450.0) L 08/09/23 13:53 MPV 10.8 fL (7.4-11.0) 08/09/23 13:53 Neut % (Auto) 58.8 % (42.0-75.0) 08/09/23 13:53 Lymph % (Auto) 27.2 % (21.0-51.0) 08/09/23 13:53 Rhea % (Auto) 10.6 % (0.0-13.0) 08/09/23 13:53 Eos % (Auto) 2.0 % (0.9-2.9) 08/09/23 13:53 Baso % (Auto) 1.4 % (0.2-1.0) H 08/09/23 13:53 Neut # (Auto) 3.9 x10^3/uL (2.2-4.8) 08/09/23 13:53 Lymph # (Auto) 1.8 X10^3/uL (1.3-2.9) 08/09/23 13:53 Rhea # (Auto) 0.7 x10^3/uL (0.3-0.8) 08/09/23 13:53 Eos # (Auto) 0.1 x10^3/uL (0.0-0.2) 08/09/23 13:53 Baso # (Auto) 0.1 X10^3/uL (0.0-0.1) 08/09/23 13:53 Absolute Nucleated RBC 0.1 /100WBC 08/09/23 13:53 Sodium 142 mmol/L (136-145) 08/09/23 13:53 Corrected Sodium TNP 08/09/23 13:53 Potassium 3.7 mmol/L (3.5-5.1) 08/09/23 13:53 Chloride 106 mmol/L (98-107) 08/09/23 13:53 Carbon Dioxide 29.9 mmol/L (21-32) 08/09/23 13:53 BUN 14 mg/dL (7-18) 08/09/23 13:53 Creatinine 0.92 mg/dL (0.55-1.02) 08/09/23 13:53 Est GFR (MDRD) Af Amer > 60 (>60) 08/09/23 13:53 Est GFR (MDRD) Non-Af > 60 (>60) 08/09/23 13:53 Glucose 106 mg/dL (65-99) H 08/09/23 13:53 Calcium 8.4 mg/dL (8.5-10.1) L 08/09/23 13:53 Corrected Calcium TNP 08/09/23 13:53 Total Bilirubin 0.30 mg/dL (0.2-1.0) 08/09/23 13:53 AST 25 Units/L (15-37) 08/09/23 13:53 ALT 37 Units/L (12-78) 08/09/23 13:53 Alkaline Phosphatase 67 Units/L (46-116) 08/09/23 13:53 Creatine Kinase 107 Units/L (26-192) 08/09/23 13:53 Troponin I High Sens 9.0 ng/L (4.0-60.0) 08/09/23 13:53 B-Natriuretic Peptide 348 pg/mL (0-79) H 08/09/23 13:53 Total Protein 7.1 g/dL (6.4-8.2) 08/09/23 13:53 Albumin 3.8 g/dL (3.4-5.0) 08/09/23 13:53 Globulin 3.3 g/dL (2.5-4.5) 08/09/23 13:53 Albumin/Globulin Ratio 1.2 Ratio (1.1-2.1) 08/09/23 13:53 Opioid Opioid Risk Tool Age (Lg box if 16-45): No History of Preadolescent Sexual Abuse: No Total: 0 Total Score Risk Category: Low Risk Copyright: Thong LOONEY predicting aberrant behaviors Discharge Plan Diagnosis Discharge Problem: Atrial fibrillation with RVR, CHF (congestive heart failure) Discharge Plan Patient Disposition: ADMITTED INPATIENT Condition: Stable Prescription drug monitoring program results: PDMP reviewed with concerns identified Prescriptions: No Action metoprolol succinate 50 mg tablet extended release 24 hr 75 mg PO pantoprazole 40 mg tablet,delayed release (DR/EC) 40 mg PO BID cyanocobalamin (vitamin B-12) 1,000 mcg/mL solution 1,000 mcg IM QMONTH hydrochlorothiazide 12.5 mg capsule 12.5 - 25 mg PO QDAY losartan 100 mg tablet 100 mg PO QDAY loratadine 10 mg tablet 20 mg PO QDAY azithromycin 500 mg tablet 500 mg PO QDAY rosuvastatin 10 mg tablet 10 mg PO QPM Eliquis 2.5 mg tablet 2.5 mg PO BID atenolol [Tenormin] 25 mg Tablet 12.5 mg PO DAILY magnesium oxide 400 mg (241.3 mg magnesium) Tablet 400 mg PO TIDWM Qty: 90 0RF megestrol 40 mg Tablet 40 mg PO BID Qty: 60 0RF Health Concerns: Post Hospitalization: new medications and changes needed to prevent readmission or further decline. Pt educated and given instructions on all concerns. Plan of Treatment: Continue with present treatment and follow up plan. Pt is to keep follow up appointment as instructed and take medications as ordered. Orders to Discharge Patient Discharge Orders: Transfer (Routine); Ordered 08/09/23 Ordered By: JUAQUIN PEREZ Follow ups/Referrals Follow ups/Referrals: Rome Durbin [Primary Care Provider] - 3 days Instructions Stand Alone Forms: Post Hospital Follow Up Care
[2023-08-09 14:04] LABS: BASOPHILS # (AUTO) 0.1 X10^3/uL (0.0-0.1); BASOPHILS % (AUTO) 1.4 % (0.2-1.0); EOSINOPHILS # (AUTO) 0.1 x10^3/uL (0.0-0.2); HEMATOCRIT 35.9 % (36.0-47.0); HEMOGLOBIN 11.8 g/dL (12.0-16.0); LYMPHOCYTES # (AUTO) 1.8 X10^3/uL (1.3-2.9); LYMPHOCYTES % (AUTO) 27.2 % (21.0-51.0); MEAN CORPUSCULAR HEMOGLOBIN 28.5 pg (27.0-34.0); MEAN CORPUSCULAR HGB CONC 32.8 g/dL (33.0-35.0); MEAN CORPUSCULAR VOLUME 86.9 fL (80.0-100.0); MEAN PLATELET VOLUME 10.8 fL (7.4-11.0); MONOCYTES # (AUTO) 0.7 x10^3/uL (0.3-0.8); MONOCYTES % (AUTO) 10.6 % (0.0-13.0); NEUTROPHILS # (AUTO) 3.9 x10^3/uL (2.2-4.8); NEUTROPHILS % (AUTO) 58.8 % (42.0-75.0); PLATELET COUNT 136 X10^3/uL (150.0-450.0); RED BLOOD COUNT 4.13 X10^6/uL (3.5-5.4); RED CELL DISTRIBUTION WIDTH 13.6 % (11.6-16.5); WHITE BLOOD COUNT 6.6 X10^3/uL (3.6-10.0)
--- NOTE | 2023-08-09 14:11 | EKG ---
Test Reason : A FIB. Blood Pressure : */* mmHG Vent. Rate : 89 BPM Atrial Rate : * BPM P-R Int : * ms QRS Dur : 80 ms QT Int : 356 ms P-R-T Axes : * -3 43 degrees QTc Int : 433 ms Atrial fibrillation with premature ventricular or aberrantly conducted complexes Abnormal ECG No previous ECGs available Confirmed by Rajan Pope ([id number]) on 08/10/2023 8:05:34 AM Referred By: Confirmed By: Rajan Pope
--- NOTE | 2023-08-09 14:26 | RAD ---
HISTORYShortness of breathSTUDYChest AP [id number] t is enlarged. No congestive heart failure is noted. No acute alveolar infiltrates or pleural effusions are identified. Bony thorax is unremarkable.IMPRESSIONMild cardiomegaly without congestive heart failureNo acute infiltratesElectronically signed by: MARK ANTHONY SIMONS (Aug 09, 2023 14:24:54)
[2023-08-09 14:35] LABS: ALANINE AMINOTRANSFERASE 37 Units/L (12-78); ALBUMIN 3.8 g/dL (3.4-5.0); ALKALINE PHOSPHATASE 67 Units/L (46-116); ASPARTATE AMINO TRANSFERASE 25 Units/L (15-37); BLOOD UREA NITROGEN 14 mg/dL (7-18); CALCIUM 8.4 mg/dL (8.5-10.1); CARBON DIOXIDE 29.9 mmol/L (21-32); CHLORIDE 106 mmol/L (98-107); CREATINE KINASE 107 Units/L (26-192); CREATININE 0.92 mg/dL (0.55-1.02); GLUCOSE 106 mg/dL (65-99); POTASSIUM 3.7 mmol/L (3.5-5.1); SODIUM 142 mmol/L (136-145); TOTAL PROTEIN 7.1 g/dL (6.4-8.2); eGFR NON BLACK RACES > 60 (>60)
[2023-08-09] MEDS ORDERED: CARDENE IV PREMIX* 40 MG/200 ML 40 MG/200 ML PIGGYBACK IV PRN (15:44)
[2023-08-09] MEDS ORDERED: CARDIZEM INJ 125 MG VIAL ONE (15:52)
[2023-08-09] MEDS ORDERED: NS 100 ML IV 100 ML ONE (15:52)
[2023-08-09] MEDS: CARDIZEM INJ 125 MG VIAL 125 MG in NS 100 ML IV 100 ML IV PRN (16:00)
[2023-08-09] MEDS ORDERED: K-DUR TAB 20 MEQ PO ONE (20:00)
[2023-08-09] MEDS ORDERED: CONSULT PHARMACY - POTASSIUM & MAGNESIUM XX SCH (20:00)
--- NOTE | 2023-08-09 20:06 | EKG ---
Test Reason : AFIB Blood Pressure : */* mmHG Vent. Rate : 75 BPM Atrial Rate : * BPM P-R Int : * ms QRS Dur : 66 ms QT Int : 398 ms P-R-T Axes : * 22 77 degrees QTc Int : 444 ms Normal sinus rhythm atrial bigeminy Nonspecific ST and T wave abnormality Abnormal ECG When compared with ECG of 09-AUG-2023 14:10, (Unconfirmed) Vent. rate has decreased BY 44 BPM Confirmed by Rajan Pope ([id number]) on 08/10/2023 8:03:36 AM Referred By: Confirmed By: Rajan Pope
[2023-08-09] MEDS: MAG-OX TAB PO SCH ×4 (20:55→23:34)
[2023-08-10] MEDS: MAG-OX TAB PO SCH ×3 (00:43→11:54)
--- NOTE | 2023-08-10 02:50 | EKG ---
Test Reason : AFIB RVR Blood Pressure : */* mmHG Vent. Rate : 65 BPM Atrial Rate : 65 BPM P-R Int : 296 ms QRS Dur : 64 ms QT Int : 436 ms P-R-T Axes : 5 1 33 degrees QTc Int : 453 ms Sinus rhythm with 1st degree AV block with premature atrial complexes Low voltage QRS Nonspecific ST and T wave abnormality Abnormal ECG When compared with ECG of 09-AUG-2023 19:54, (Unconfirmed) Sinus rhythm has replaced Atrial fibrillation ST now depressed in Inferior leads Confirmed by Rajan Pope ([id number]) on 08/10/2023 8:01:02 AM Referred By: Confirmed By: Rajan Pope
[2023-08-10 05:48] LABS: BASOPHILS % (AUTO) 0.8 % (0.2-1.0); EOSINOPHILS # (AUTO) 0.2 x10^3/uL (0.0-0.2); EOSINOPHILS % (AUTO) 2.8 % (0.9-2.9); HEMATOCRIT 32.9 % (36.0-47.0); HEMOGLOBIN 10.9 g/dL (12.0-16.0); LYMPHOCYTES # (AUTO) 2.8 X10^3/uL (1.3-2.9); LYMPHOCYTES % (AUTO) 44.1 % (21.0-51.0); MEAN CORPUSCULAR HEMOGLOBIN 28.5 pg (27.0-34.0); MEAN CORPUSCULAR HGB CONC 33.1 g/dL (33.0-35.0); MEAN CORPUSCULAR VOLUME 86.1 fL (80.0-100.0); MEAN PLATELET VOLUME 10.6 fL (7.4-11.0); MONOCYTES # (AUTO) 0.6 x10^3/uL (0.3-0.8); NEUTROPHILS # (AUTO) 2.7 x10^3/uL (2.2-4.8); NEUTROPHILS % (AUTO) 42.3 % (42.0-75.0); PLATELET COUNT 115 X10^3/uL (150.0-450.0); RED BLOOD COUNT 3.83 X10^6/uL (3.5-5.4); RED CELL DISTRIBUTION WIDTH 13.2 % (11.6-16.5); WHITE BLOOD COUNT 6.3 X10^3/uL (3.6-10.0)
[2023-08-10 06:07] LABS: ALANINE AMINOTRANSFERASE 32 Units/L (12-78); ALBUMIN 3.2 g/dL (3.4-5.0); ALKALINE PHOSPHATASE 56 Units/L (46-116); ASPARTATE AMINO TRANSFERASE 24 Units/L (15-37); BLOOD UREA NITROGEN 13 mg/dL (7-18); CALCIUM 8.3 mg/dL (8.5-10.1); CARBON DIOXIDE 31.3 mmol/L (21-32); CHLORIDE 107 mmol/L (98-107); COR CA(FOR HYPOALB) 8.9 mg/dL (8.5-10.1); CREATININE 0.81 mg/dL (0.55-1.02); GLUCOSE 104 mg/dL (65-99); MAGNESIUM 1.5 mg/dL (2.0-2.9); POTASSIUM 3.9 mmol/L (3.5-5.1); SODIUM 144 mmol/L (136-145); TOTAL PROTEIN 6.1 g/dL (6.4-8.2); eGFR NON BLACK RACES > 60 (>60)
[2023-08-10] MEDS ORDERED: CONSULT PHARMACY - POTASSIUM & MAGNESIUM XX SCH ×2 (07:00)
[2023-08-10] MEDS: ELIQUIS PO SCH ×2 (09:28→20:18)
[2023-08-10] MEDS ORDERED: TOPROL XL PO ONE (11:50)
[2023-08-10] MEDS: PROTONIX TAB 40 MG PO SCH ×2 (11:54→20:18)
[2023-08-10] MEDS: TOPROL XL PO SCH (11:54)
[2023-08-10] MEDS ORDERED: CLARITIN PO SCH (12:00)
--- NOTE | 2023-08-10 12:11 | DR.H&P ---
H&P - History & Physical for Day of: H&P Date: 08/09/23 - Chief Complaint Chief Complaint: DIZZINESS, WEAKNESS, ELEVATED HEART RATE - History of Present Illness History of Present Illness: IS A 88 YEAR OLD PATIENT OF OURS. SHE HAS A PMH OF DYSLIPIDEMIA, HTN, A-FIB, GERD, ALLERGIC RHINITIS, HYSTERECTOMY, ORTHO SURGERY, TONSILLECTOMY. SHE PRESENTED TO THE OFFICE TODAY WITH COMPLAINTS OF DIZZINESS AND WEAKNESS. AN EKG WAS OBTAINED AT THE OFFICE AND REVEALED ATRIAL FIBRILLATION WITH RVR. SHE WAS INSTRUCTED TO PRESENT TO THE EMERGENCY ROOM. ON ARRIVAL TO THE ER, HER VITALS WERE: 98.2-95-16-98%-139/83. LABS WERE OBTAINED. WBC 6.6, RBC 4.13, HGB 11.8, HCT 35.9, PLT COUNT 136, SODIUM 142, POTASSIUM 3.7, CHLORIDE 106, CARBON DIOXIDE 29.9, BUN 14, CREATININE 0.92, GLUCOSE 106, CALCIUM 8.4, MAGNESIUM 1.4, TOTAL BILI 0.30, AST 25, ALT 37, ALK PHOS 67, CREATINE KINASE 107, TROPONIN 9.0, BNP 348, TOTAL PROTEIN 7.1, ALBUMIN 3.8. A CHEST XRAY WAS OBTAINED AND REVEALED: MILD CARDIOMEGALY WITHOUT CHF. NO ACUTE INFILTRATES. AN EKG WAS OBTAINED AND REVEALED: ATRIAL FIBRILLATION WITH PREMATURE VENTRICULAR OR ABERRANTLY CONDUCTED COMPLEXES. HER HR AT THE TIME THAT THE EKG WAS OBTAINED WAS 89 BPM. A FEW MINUTES AFTER THE EKG WAS DONE, HER HEART RATE INCREASED TO THE 120s. DECISION WAS MADE TO ADMIT PATIENT TO THE HOSPITAL FOR FURTHER EVALUATION AND TREATMENT OF ATRIAL FIBRILLATION WITH RVR. SHE WAS STARTED ON A CARDIZEM DRIP, ELIQUIS 2.5MG BID, METOPROLOL SUCCINATE 100MG DAILY. WE WILL RESUME HER HOME MEDICATIONS OF PROTONIX 40MG BID, CRESTOR 10MG HS, AND LORATADINE 20MG DAILY. WE WILL OBTAIN SERIAL CARDIAC ENZYMES AND EKGS. OTHE RWISE, WE WILL FOLLOW UP WITH AM LABS AND CONTINUE TO MONITOR. TIME SPENT ON CLINICAL ASSESSMENT, REVIEWING LABS AND IMAGING, DECISION MAKING, AND DOCUMENTATION GREATER THAN 75 MINUTES. - Past Medical History Past Medical History: Dyslipidemia, GERD, Hypertension Additional Medical History: ATRIAL FIBRILLATION, ALLERGIC RHINITIS - Past Surgical History Surgical History: Hysterectomy Additional Surgical History: AFIB ABLATION - Family History Family Medical History: Cancer - Social History Does patient currently use any type of tobacco product: No Have you used tobacco products in the last 12 months: No Type of Tobacco Use: None Does any household member use tobacco: No Alcohol Use: None Drug Use: None - Review of Systems Constitutional: Weakness Eyes: No Symptoms Reported ENT: No Symptoms Reported Respiratory: No Symptoms Reported Cardiovascular: See HPI, Palpitations, Light Headedness Gastrointestinal: No Symptoms Reported Genitourinary: No Symptoms Reported Musculoskeletal: No Symptoms Reported Skin: No Symptoms Reported Neurological: Weakness - Physical Exam Vital Signs: Vital Signs Temperature 98.2 F Pulse Rate 128 Pulse Rate 128 Pulse Rate 130 Pulse Rate 130 Pulse Rate 127 Pulse Rate 126 Pulse Rate 124 Respiratory Rate 16 Respiratory Rate 20 Respiratory Rate 20 Respiratory Rate 18 Respiratory Rate 13 Respiratory Rate 15 Respiratory Rate 16 Blood Pressure 150/89 Blood Pressure 145/79 Blood Pressure 146/70 Blood Pressure 147/80 Blood Pressure 144/77 Blood Pressure 151/75 Blood Pressure 158/70 O2 Sat by Pulse Oximetry 99 O2 Sat by Pulse Oximetry 98 O2 Sat by Pulse Oximetry 100 O2 Sat by Pulse Oximetry 97 O2 Sat by Pulse Oximetry 97 O2 Sat by Pulse Oximetry 97 O2 Sat by Pulse Oximetry 98 Vitals 08/10/23 10:24 08/10/23 09:00 08/10/23 10:00 Pulse Rate 130 H 128 H Respiratory Rate 20 20 O2 Sat by Pulse Oximetry 100 98 Oxygen Delivery Method Nasal Cannula Nasal Cannula Nasal Cannula Oxygen Flow Rate 2 2 2 FIO2% 28 Blood Pressure 146/70 145/79 08/10/23 11:00 Pulse Rate 128 H Respiratory Rate 16 O2 Sat by Pulse Oximetry 99 Oxygen Delivery Method Nasal Cannula Oxygen Flow Rate 2 FIO2% Blood Pressure 150/89 Oriented: Normal Eyes: Normal Ear: Normal Nose: Normal Throat: Normal Respiratory: Diminished Throughout Cardiovascular: Tachycardia, Irregular : Normal Auscultation: Bowel Sounds: Normal Palpation: Normal Tenderness: Normal Skin: Normal Musculoskeletal: Normal Psychiatric: Normal Mood Description: Calm Affect: Normal Speech Pattern: Clear - Assessment/Plan (1) Atrial fibrillation with RVR Status: Acute Plan: ADMIT, SERIAL CARDIAC ENZYMES AND EKGS, CARDIZEM DRIP, ELIQUIS 2.5MG BID, METOPROLOL SUCCINATE 100MG DAILY, RESUME HOME MEDS (2) Generalized weakness Status: Acute (3) Hypertension Qualifiers: Hypertension type: primary hypertension Qualified Code(s): I10 - Essential (primary) hypertension Status: Chronic Plan: METOPROLOL 100MG DAILY (4) Hyperlipidemia Qualifiers: Hyperlipidemia type: mixed hyperlipidemia Status: Chronic Plan: RESUME CRESTOR (5) GERD (gastroesophageal reflux disease) Qualifiers: Esophagitis presence: esophagitis presence not specified Qualified Code(s): K21.9 - Gastro-esophageal reflux disease without esophagitis Status: Chronic Plan: RESUME PANTOPRAZOLE (6) Allergic rhinitis Qualifiers: Allergic rhinitis trigger: unspecified Allergic rhinitis seasonality: unspecified Qualified Code(s): J30.9 - Allergic rhinitis, unspecified Status: Chronic Plan: RESUME LORATADINE - Allergies Allergies/Adverse Reactions: Allergies Allergy/AdvReac Type Severity Reaction Status Date / Time codeine Allergy Verified 07/09/22 09:29 iodine Allergy Verified 07/09/22 09:29 meperidine Allergy Verified 07/09/22 09:29 morphine Allergy Verified 07/09/22 09:29 NSAIDS (Non-Steroidal Allergy Verified 07/09/22 09:29 Anti-Inflamma shrimp Allergy Verified 07/09/22 09:29 - Medications Home Medications: Home Medications Medication Instructions Recorded Confirmed apixaban 2.5 mg tablet (Eliquis) 2.5 mg PO BID 08/09/23 08/09/23 azithromycin 500 mg tablet 500 mg PO QDAY 08/09/23 08/09/23 cyanocobalamin (vitamin B-12) 1,000 mcg IM QMONTH 08/09/23 08/09/23 1,000 mcg/mL injection solution hydrochlorothiazide 12.5 mg capsule 12.5 - 25 mg PO QDAY 08/09/23 08/09/23 loratadine 10 mg tablet 10 mg PO BID 08/09/23 08/10/23 losartan 100 mg tablet 100 mg PO QDAY 08/09/23 08/09/23 metoprolol succinate 50 mg 75 mg PO DAILY 08/09/23 08/09/23 tablet,extended release 24 hr pantoprazole 40 mg tablet,delayed 40 mg PO BID 08/09/23 08/09/23 release rosuvastatin 10 mg tablet 10 mg PO QPM cholesterol 08/09/23 08/09/23
[2023-08-10] MEDS: CARDIZEM INJ 125 MG VIAL 125 MG in NS 100 ML IV 100 ML IV PRN (14:15)
[2023-08-10 14:20] LABS: BILIRUBIN,URINE NEGATIVE (NEGATIVE); BLOOD/HEMOGLOBIN,URINE NEGATIVE (NEGATIVE); GLUCOSE, URINE NEGATIVE (NEGATIVE); KETONES,URINE NEGATIVE (NEGATIVE); LEUKOCYTE ESTERASE ,URINE 2+ (NEGATIVE); NITRITES,URINE NEGATIVE (NEGATIVE); PROTEIN,URINE NEGATIVE (NEGATIVE); UROBILINOGEN,URINE NORMAL (NORMAL)
[2023-08-10 14:32] LABS: APPEARANCE,URINE CLEAR (CLEAR); BACTERIA,URINE TRACE /HPF (NEGATIVE); COLOR,URINE PALE YELLOW (YELLOW); RBC,URINE NONE SEEN /HPF (0-3); SQUAMOUS EPITHELIAL CELL,UR NEGATIVE /HPF (NEGATIVE)
[2023-08-10] MEDS: COZAAR PO SCH (15:51)
[2023-08-10] MEDS: HYDROCHLOROTHIAZIDE 12.5 MG CAP PO SCH (16:21)
[2023-08-10] MEDS: CLARITIN PO SCH (20:17)
[2023-08-10] MEDS ORDERED: CRESTOR TAB 10 MG PO SCH (21:00)
[2023-08-11 05:32] LABS: BASOPHILS % (AUTO) 0.5 % (0.2-1.0); EOSINOPHILS # (AUTO) 0.2 x10^3/uL (0.0-0.2); HEMATOCRIT 31.6 % (36.0-47.0); HEMOGLOBIN 10.6 g/dL (12.0-16.0); LYMPHOCYTES # (AUTO) 2.5 X10^3/uL (1.3-2.9); LYMPHOCYTES % (AUTO) 33.6 % (21.0-51.0); MEAN CORPUSCULAR HEMOGLOBIN 28.6 pg (27.0-34.0); MEAN CORPUSCULAR HGB CONC 33.4 g/dL (33.0-35.0); MEAN CORPUSCULAR VOLUME 85.6 fL (80.0-100.0); MEAN PLATELET VOLUME 11.1 fL (7.4-11.0); MONOCYTES # (AUTO) 0.7 x10^3/uL (0.3-0.8); MONOCYTES % (AUTO) 9.4 % (0.0-13.0); NEUTROPHILS % (AUTO) 53.5 % (42.0-75.0); PLATELET COUNT 133 X10^3/uL (150.0-450.0); RED BLOOD COUNT 3.69 X10^6/uL (3.5-5.4); RED CELL DISTRIBUTION WIDTH 13.1 % (11.6-16.5); WHITE BLOOD COUNT 7.5 X10^3/uL (3.6-10.0)
[2023-08-11 05:52] LABS: ALANINE AMINOTRANSFERASE 28 Units/L (12-78); ALBUMIN 3.2 g/dL (3.4-5.0); ALKALINE PHOSPHATASE 58 Units/L (46-116); ASPARTATE AMINO TRANSFERASE 25 Units/L (15-37); BLOOD UREA NITROGEN 16 mg/dL (7-18); CALCIUM 8.2 mg/dL (8.5-10.1); CARBON DIOXIDE 27.8 mmol/L (21-32); CHLORIDE 107 mmol/L (98-107); COR CA(FOR HYPOALB) 8.8 mg/dL (8.5-10.1); GLUCOSE 110 mg/dL (65-99); MAGNESIUM 1.9 mg/dL (2.0-2.9); POTASSIUM 4.1 mmol/L (3.5-5.1); SODIUM 143 mmol/L (136-145); eGFR NON BLACK RACES 56 (>60)
[2023-08-11] MEDS ORDERED: ROCEPHIN VIAL 1 GRAM 1 G in NS 100 ML IV 100 ML IV SCH (09:45)
[2023-08-11] MEDS ORDERED: TOPROL XL PO ONE (09:47)
[2023-08-11] MEDS: COZAAR PO SCH (09:52)
[2023-08-11] MEDS: TOPROL XL PO SCH (09:52)
[2023-08-11] MEDS: ELIQUIS PO SCH (09:53)
[2023-08-11] MEDS: HYDROCHLOROTHIAZIDE 12.5 MG CAP PO SCH (09:53)
[2023-08-11] MEDS: PROTONIX TAB 40 MG PO SCH (09:53)
[2023-08-11] MEDS: CLARITIN PO SCH (09:53)
[2023-08-11] MEDS ORDERED: NS 250 ML IV 250 ML IV ONE (10:01)
[2023-08-11 12:35] VITALS: TEMP 97.3; O2SAT 96
[2023-08-11 13:37] VITALS: BP 164/85; PULSE 64; RESP 22
== END 2023-08-11 13:52 | disposition home or self-care (01) ==
LOC: ER 13:11 → ICU 13:11
PROVIDERS: ADMIT Internal Medicine; ATTEND Internal Medicine
DX: R53.1 Weakness; I51.7 Cardiomegaly; K21.9 Gastro-esophageal reflux disease without esophagitis; I48.91 Unspecified atrial fibrillation; R82.998 Other abnormal findings in urine; I10 Essential (primary) hypertension; R42 Dizziness and giddiness; F09 Unspecified mental disorder due to known physiological condition; J30.9 Allergic rhinitis, unspecified; E78.2 Mixed hyperlipidemia; Z87.440 Personal history of urinary (tract) infections